=== PATIENT | male | born 1985 ===

== ENCOUNTER 2017-08-19 03:13 | Emergency (ER) | payer SELFPAY ==
[2017-08-19 03:33] VITALS: RESP 16; TEMP 98; O2SAT 100
--- NOTE | 2017-08-19 05:31 | ED PDOC ---
HPI: Male Pain Time Seen by Provider: 08/19/17 03:44 Chief Complaint (Nursing): Male Genitourinary Chief Complaint (Provider): Male Genitourinary History Per: Patient Onset/Duration Of Symptoms: Hrs Current Symptoms Are (Timing): Still Present Associated Symptoms: Urinary Symptoms. denies: Fever, Nausea, Vomiting Additional Complaint(s): Srinath Gonzalez is a 32 year old male with no past medical history who is presenting to the ED with complaints of left testicular pain radiating to the back, onset around 11 pm last night. Patient states that he can produce urine but is experiencing dysuria and hesitancy. Of note, patient reports that he has not been sexually active in over a year. He denies any fevers, nausea, or vomiting and states that his back pain has resolved. PMD: none provided Past Medical History Reviewed: Historical Data, Nursing Documentation, Vital Signs Vital Signs: Last Vital Signs Temp 98.0 F 08/19/17 03:31 Pulse 72 08/19/17 03:31 Resp 16 08/19/17 03:31 BP 143/89 08/19/17 03:31 Pulse Ox 100 08/19/17 03:31 - Medical History PMH: No Chronic Diseases - Surgical History Surgical History: No Surg Hx - Family History Family History: States: Unknown Family Hx - Social History Ex-Smoker (has not smoked in the last 12 months): No Alcohol: Social Drugs: Denies - Home Medications Home Medications: Ambulatory Orders Medication Instructions Recorded Ibuprofen [Motrin Tab] 600 mg PO Q6 #30 tab 08/19/17 - Allergies Allergies/Adverse Reactions: Allergies Allergy/AdvReac Type Severity Reaction Status Date / Time No Known Allergies Allergy Verified 08/19/17 03:58 Review of Systems ROS Statement: Except As Marked, All Systems Reviewed And Found Negative Constitutional: Negative for: Fever Gastrointestinal: Negative for: Nausea, Vomiting Genitourinary Male: Positive for: Dysuria, Other (hesitancy, left testicular pain) Musculoskeletal: Positive for: Back Pain Physical Exam - Reviewed Nursing Documentation Reviewed: Yes Vital Signs Reviewed: Yes - Physical Exam Appears: Positive for: Well, Non-toxic, No Acute Distress Head Exam: Positive for: ATRAUMATIC, NORMAL INSPECTION, NORMOCEPHALIC Skin: Positive for: Normal Color, Warm, Dry Eye Exam: Positive for: EOMI, Normal appearance, PERRL ENT: Positive for: Normal ENT Inspection Neck: Positive for: Normal, Painless ROM Cardiovascular/Chest: Positive for: Regular Rate, Rhythm Respiratory: Positive for: CNT, Normal Breath Sounds Gastrointestinal/Abdominal: Positive for: Normal Exam, Soft. Negative for: Tenderness Male Genital Exam: Positive for: testicular tenderness (L), other (normal lie of testicles, creme static reflex intact, slight fullness of spermatic cord) Back: Positive for: Normal Inspection Extremity: Positive for: Normal ROM Neurologic/Psych: Positive for: Alert, Oriented. Negative for: Motor/Sensory Deficits - ECG O2 Sat by Pulse Oximetry: 100 (RA) Pulse Ox Interpretation: Normal Medical Decision Making Medical Decision Making: Time: 4:04 Male with no past medical history presenting with urinary symptoms and testicular pain. Upon exam, testicular torsion is unlikely but will be confirmed with ultrasound. Differentials: Hydrocele vs varicocele vs Urinary tract infection. Otherwise patient well appearing. Ultrasound: FINDINGS: Right testicle: Unremarkable. No mass. No torsion. Left testicle: Unremarkable. No mass. No torsion. Epididymides: Unremarkable. No varicocele Scrotum: Small hydroceles noted bilaterally IMPRESSION: No sonographic evidence for testicular torsion Small hydroceles Patient is feeling much better after ultrasound. Given referral for urology. Return precautions given. Scribe Attestation: Documented by, Manisha Chowdhury acting as a scribe for Tonny Farmer MD. Provider Scribe Attestation: All medical record entries made by the Scribe were at my direction and personally dictated by me. I have reviewed the chart and agree that the record accurately reflects my personal performance of the history, physical exam, medical decision making, and the department course for this patient. I have also personally directed, reviewed, and agree with the discharge instructions and disposition. Disposition - Clinical Impression Clinical Impression: Hydrocele - Disposition Referrals: Román Thomas MD [Medical Doctor] - Disposition Time: 06:21 Condition: STABLE Prescriptions: Ibuprofen [Motrin Tab] 600 mg PO Q6 #30 tab Instructions: Hydrocele Forms: [facility] (Eth[place]ian) Print Language: JAPANESE
[2017-08-19 06:26] VITALS: BP 129/83; PULSE 84
--- NOTE | 2017-08-19 08:29 | US ---
HISTORY: r/o torsion to L testes TECHNIQUE: Realtime sonography through the scrotum with color and doppler flow. COMPARISON: None Available. FINDINGS: RIGHT TESTICLE: Measures 4.1 x 2.2 x 2.9 cm. Normal echotexture and flow. RIGHT EPIDIDYMIS: Epididymal head measures 0.8 x 0.6 x 0.7 cm. Grossly unremarkable appearance with normal flow. LEFT TESTICLE: Measures 4.0 x 1.9 x 3.0 cm. Normal echotexture and flow. LEFT EPIDIDYMIS: Epididymal head measures 0.9 x 0.6 x 0.7 cm. Grossly unremarkable appearance with normal flow. HYDROCELE: Small bilateral hydroceles suggested VARICOCELE: None. OTHER FINDINGS: None. IMPRESSION: No evidence of testicular torsion. Small bilateral hydroceles Concordant results (preliminary interpretation) provided by [facility].
== END 2017-08-19 06:26 | disposition home or self-care (01) ==
LOC: H.ER 03:13
DX: N43.3 Hydrocele, unspecified (principal)